=== PATIENT | male | born 1980 ===

== ENCOUNTER 2025-03-22 13:21 | Emergency (ER) | payer BC ==
[~2025-03-22] VITALS: Ht 182.9 cm; Wt 143.3 kg
[2025-03-22] MEDS ORDERED: CACL 1GM SYG IVP ONE ×2 (13:22)
--- NOTE | 2025-03-22 13:42 | ERN ---
General Chief Complaint: CPR/Full Arrest Stated Complaint: CPR Time Seen by MD: 13:40 Source: patient History of Present Illness Initial Comments Patient is a 55-year-old gentleman coming in in cardiac arrest. Per EMS patient was found in the floor after he collapsed. Allergies: Coded Allergies: No Allergy Information Available (Verified Allergy, Unknown, 03/22/25) ROS Dictation Unable to perform due to patient's status Physical Exam Physical Exam Dictation Patient is intubated Results Laboratory and Microbiology Lab and Micro Result Laboratory Tests Test 03/22/25 13:40 White Blood Count 9.6 K/uL (4.8-10.8) Red Blood Count 3.23 MIL/uL (4.50-6.20) L Hemoglobin 10.1 g/dL (14.0-18.0) L Hematocrit 32.0 % (42-54) L Mean Corpuscular Volume 99.1 fL (79-99) H Mean Corpuscular Hemoglobin 31.3 pg (27.0-33.0) Mean Corpuscular Hemoglobin Concent 31.6 g/dL (32.0-36.0) L Red Cell Distribution Width 14.2 % (11.0-15.5) Platelet Count 145 K/uL (130-400) Mean Platelet Volume 10.9 fL (7.5-10.5) H Immature Granulocyte % (Auto) 9.4 % (0-1) H Neutrophils (%) (Auto) 31.9 % (40.0-77.0) L Lymphocytes (%) (Auto) 46.2 % (21.0-51.0) Monocytes (%) (Auto) 8.6 % (3.0-13.0) Eosinophils (%) (Auto) 2.2 % (0.0-8.0) Basophils (%) (Auto) 1.7 % (0.0-5.0) Neutrophils # (Auto) 3.1 K/uL (1.8-7.7) Lymphocytes # (Auto) 4.5 K/uL (1.0-4.8) Monocytes # (Auto) 0.8 K/uL (0.1-1.0) Eosinophils # (Auto) 0.21 K/uL (0.00-0.70) Basophils # (Auto) 0.16 K/uL (0.00-0.20) Absolute Immature Granulocyte (auto 0.91 K/uL (0-1) Nucleated Red Blood Cells 2.8 % (0.0-0.19) H Sodium Level 145 mmol/L (136-145) Potassium Level 7.0 mmol/L (3.5-5.1) *H Chloride Level 109 mmol/L (101-111) Carbon Dioxide Level 21 mmol/L (21-32) Blood Urea Nitrogen 58 mg/dL (7-18) H Creatinine 5.5 mg/dL (0.5-1.3) H Glomerular Filtration Rate Calc 12 mL/min (>90) Random Glucose 259 mg/dL (70-105) H Lactic Acid Level 8.5 mmol/L (0.8-2.5) H Total Calcium 8.5 mg/dL (8.5-10.1) Magnesium Level 2.10 mg/dL (1.80-2.40) Total Bilirubin 0.2 mg/dL (0.2-1.0) Aspartate Amino Transf (AST/SGOT) 71 U/L (10-37) H Alanine Aminotransferase (ALT/SGPT) 56 U/L (12-78) Alkaline Phosphatase 134 U/L (50-136) Total Protein 5.9 g/dL (6.0-8.3) L Albumin 1.9 g/dL (3.5-5.0) L Labs Reviewed?: Yes MDM MDM: Differential diagnosis: Cardiac arrest, endotracheal intubation Rationale: Tests considered and ordered secondary to shared decision making include: labs, ECG and radiology Previous outside records reviewed: Old ER visits. Risk of complication and/or morbidity or mortality of patient management: None Medications-Per medication reconciliation Need for hospitalization: Patient does meet criteria for hospitalization. Need for emergency major/minor surgery: No There are no social concerns with this patient. Prescription drug management Prescriptions will include symptomatic care Patient's prior external medical records from other ER visits were reviewed by me as indicated. Prior testing and results from previous visits were reviewed. Prior tests were taken into account with medical decision making and resource utilization, independent historian/historians were used to obtain complete medical history. I independently interpreted the test that were performed, results were reviewed by me and considered findings on radiology if ordered. Medical management and examination interpretation discussions were had by me with other qualified healthcare professionals as indicated for the patient's care. Patient was coded for greater than an hour unable to bring him back. Decision was made to stop code. Family members at bedside were in agreement with stopping the code ED Course Orders Procedure Category Date Status Time Cbc With Differential LAB 03/22/25 Complete 13:37 Comprehensive LAB 03/22/25 Complete Metabolic Panel 13:37 Lactic Acid LAB 03/22/25 Complete 13:37 12 Lead Ekg Tracing- EKG 03/22/25 Complete Technical 13:37 Chest 1vw RAD 03/22/25 Taken 13:37 Magnesium LAB 03/22/25 Complete 13:37 Drug Screen Urine LAB 03/22/25 Logged 13:37 Ct Head/Brain W/O CT 03/22/25 Logged Contrast 13:37 Urinalysis Profile LAB 03/22/25 Logged 13:37 Ng Tube Insertion CPOE 03/22/25 Transmitted 13:37 Nurse Driven [place] [facility]CO 03/22/25 In Process Removal Pro 13:37 Epinephrine Pf 1mg PHA 03/22/25 In Process (1:1,000) (Adrenaline 14:00 Bedside Glucose CPOE 03/22/25 Transmitted Fingerstick 13:37 Current Medications Medications (Trade) Dose Ordered Sig/Andrzej Route PRN Reason Start Time Stop Time Status Last Admin Dose Admin Epinephrine HCl 2 mg/Sodium Chloride 252 ml @ 0 mls/hr PROTOCOL IV 03/22/25 14:00 04/21/25 13:59 Vital Signs Date Time Temp Pulse Resp B/P (MAP) Pulse Ox O2 Delivery O2 Flow Rate FiO2 03/22/25 13:45 97.5 60 16 140/120 98 ETT Piece+ 100 03/22/25 13:40 0 0/0 Procedure Dictation The procedure was emergent, the patient was unable to provide consent, and a designee was not immediately available. PROCEDURE SUMMARY: A time out was performed. My hands were washed immediately prior to the procedure. I wore a surgical cap, mask with protective eyewear, gown and gloves throughout the procedure. The patient was placed on a quality assurance monitor including continuous pulse oximetry. Rapid Sequence Intubation was conducted. TCricoid pressure was maintained from time induction agent was given to time of cuff ba lloon inflation. Using a GLIDESCOPE and a size [ ] endotracheal tube with stylet, the patient was intubated on the 1 attempt. The stylet was removed and cuff balloon was inflated. Appropriate endotracheal tube position was confirmed by direct visualization of vocal cord passage, fogging of the tube, CO2 colormetric indicator and symmetric breath sounds. The tube was secured at [ 23 ] cm at the lips. Post intubation chest x-ray is pending at this time. DX & DISP Disposition: Departure Impression: Primary Impression: Cardiac arrest Condition: Stable Referrals: SELF,REFERRAL (PCP) Time of Disposition: 14:41 KELLY MAHMOOD MD Mar 22, 2025 13:42
[2025-03-22 13:45] VITALS: BP 140/120; PULSE 67; RESP 16; TEMP 97.6; O2SAT 98
[2025-03-22 13:53] LABS: IMMATURE GRANULOCYTE ABSOLUTE 0.91 K/uL (0-1); NUCLEATED RED BLOOD CELLS 2.8 % (0.0-0.19); PLATELET COUNT (AUTO) 145 K/uL (130-400); RED BLOOD CELL COUNT(AUTO) 3.23 MIL/uL (4.50-6.20); RED CELL DISTRIBUTION WIDTH 14.2 % (11.0-15.5); WHITE BLOOD COUNT (AUTO) 9.6 K/uL (4.8-10.8)
[2025-03-22 14:11] LABS: ASPARTATE AMINOTRANSFERASE 71.0 U/L (10-37); CREATININE 5.5 mg/dL (0.5-1.3); GLOMERULAR FILTR. RATE CALC 12.0 mL/min (>90); GLUCOSE,RANDOM 259.0 mg/dL (70-105); SODIUM SERUM 145.0 mmol/L (136-145); TOTAL PROTEIN, SERUM 5.9 g/dL (6.0-8.3); UREA NITROGEN, BLOOD 58.0 mg/dL (7-18)
--- NOTE | 2025-03-22 14:16 | EKG ---
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
--- NOTE | 2025-03-22 14:55 | NUR ---
refer to code sheet for further documentation.
--- NOTE | 2025-03-22 14:58 | NUR ---
SW responded to [facility] for support. SW met with parents of pt and offered services and resources. As per father, pt was diagnosed with a heart condition 6 months ago and now "we are here". Mother arrived to EMS shortly after father. Family stated that they did not need any additional resources at this time.
--- NOTE | 2025-03-22 14:59 | NUR ---
CALLED PRECIOUS AT [phone], REFERRAL NUMBER IS: [phone]. SPOKE TO DIPTI CALVERT.
--- NOTE | 2025-03-22 15:14 | HMCIMG ---
EXAM: CR Chest, 2 View. CLINICAL HISTORY: ROSC COMPARISON: None provided. FINDINGS: Endotracheal tube terminates above the rose marie, in satisfactory position. Mild diffuse airspace disease bilaterally presumed to reflect pulmonary edema. Small right pleural effusion. No pneumothorax. AICD leads overlie the right atrium and right ventricle. Mild cardiomegaly, and mild central pulmonary vascular congestion. IMPRESSION: 1. Bilateral pulmonary edema with mild central pulmonary vascular congestion 2. Small right pleural effusion 3. Mild cardiomegaly 4. Endotracheal tube in satisfactory position /[place]
--- NOTE | 2025-03-22 15:30 | NUR ---
SPOKE TO [employer].
--- NOTE | 2025-03-22 16:10 | NUR ---
POST MORDEM CARE PROVIDED, PT TAKEN TO [place] WITH SECURITY AT THIS TIME.
== END 2025-03-22 14:24 ==
LOC: EDH 13:21 → EDBD 13:21 → EDH 14:24
DX: I46.9 Cardiac arrest, cause unspecified (principal)
CPT/HCPCS: 99285; 92950 ×2; 31500; 71045; 83735; 80053; 85025; 83605; 36415; 93005; J7070 ×2; J0171 ×3; J3475; J3490 ×3; J7050; 94002